=== PATIENT | female | born 1960 | race Caucasian/White ===

== ENCOUNTER → 2016-07-18 | Outpatient (CLI) | payer OTHER ==
--- NOTE | 2016-07-18 13:50 | MAM ---
History: Well woman exam. Date of exam: 07/18/2016 Services provided: Bilateral full field digital screening mammography. CAD, the images were reviewed with R2 computer aided detection. FINDINGS: Glandular tissue is scattered glandular contour. No prior study for comparison. No dominant mass, architectural distortion or clustered microcalcification. Suspected intramammary lymph node left breast 1:00. IMPRESSION: Benign exam Recommendation: Routine annual mammography BIRAD CATEGORY: 2 BENIGN Electronically signed by: Mary Delacruz MD 07/18/2016 1:49 PM CDT Workstation: [id number]
== END | disposition home or self-care (01) ==
LOC: MAMMO 08:29
PROVIDERS: ATTEND Family Medicine
DX: Z12.31 Encounter for screening mammogram for malignant neoplasm of breast (principal)

== ENCOUNTER → 2016-07-18 | Outpatient (CLI) | payer OTHER ==
--- NOTE | 2016-07-18 12:34 | US ---
EXAM DESCRIPTION: Renal CLINICAL HISTORY: 55 years, Female, MICROSCOPIC HEMATURIA COMPARISON: None. FINDINGS: Right kidney 10.3 cm left kidney 10.3 cm. No hydronephrosis. Lower pole left renal cyst medially 2.5 x 2.8 x 2.5 cm IMPRESSION: Incidental note of benign-appearing lower pole left renal cyst. Study otherwise unremarkable. Electronically signed by: Josue Ríos MD 07/18/2016 12:33 PM CDT
== END ==
LOC: US 08:30
PROVIDERS: ATTEND Family Medicine
DX: R31.21 Asymptomatic microscopic hematuria (principal); N28.1 Cyst of kidney, acquired

== ENCOUNTER → 2016-08-21 | Outpatient (CLI) | payer OTHER ==
--- NOTE | 2016-08-22 11:07 | CT ---
EXAM DESCRIPTION: Abdoment/Pelvis w/o Contrast CLINICAL HISTORY: HEMATURIA COMPARISON: None Available TECHNIQUE: CT of the abdomen and Pelvis was performed without IV contrast. This exam was performed according to our departmental dose-optimization program, which includes automated exposure control, adjustment of the mA and/or kV according to patient size and/or use of iterative reconstruction technique. FINDINGS: There is no left or right-sided urinary tract calculus, hydronephrosis or perinephric inflammation. There is a 3 cm cyst in the inferior pole of the left kidney. No suspicious renal mass. No bladder wall thickening. No adenopathy, ascites or pneumoperitoneum. The uterus and ovaries are not identified, please correlate with surgical history. No colonic wall thickening or pericolonic inflammation. Normal appendix. No dilated small bowel loops. The gallbladder is surgically absent. There is degenerative facet joint disease at several levels in the lumbar spine. The exam is otherwise unremarkable for noncontrast technique. IMPRESSION: 3 cm left renal cyst, but no urinary tract calculus, hydronephrosis, bladder wall thickening or additional abnormality to explain hematuria. Electronically signed by: Hero Vera MD 08/22/2016 11:06 AM CDT Workstation: [id number]
== END ==
LOC: CT 14:30
PROVIDERS: ATTEND Urology
DX: R31.9 Hematuria, unspecified (principal); N28.1 Cyst of kidney, acquired

== ENCOUNTER → 2017-01-25 | Outpatient (CLI) | payer OTHER | END | disposition home or self-care (01) | LOC: GMAM 16:41 | PROVIDERS: ATTEND Family Medicine | DX: E03.9 Hypothyroidism, unspecified (principal) ==

== ENCOUNTER → 2017-12-04 | Outpatient (CLI) | payer OTHER | LOC: GMAM 17:12 | PROVIDERS: ATTEND Family Medicine | DX: E03.9 Hypothyroidism, unspecified (principal) ==

== ENCOUNTER → 2017-12-18 | Outpatient (CLI) | payer OTHER ==
--- NOTE | 2017-12-18 11:42 | MRI ---
Study: MRI of the Left Shoulder. Indication: PAIN IN LEFT SHOULDER Technique: Multiplanar, multi sequence MRI of the left shoulder was obtained without intravenous contrast. Comparison: None. Findings: Moderate AC joint osteoarthritis. Type II acromion with mild lateral downsloping. Trace subacromial/subdeltoid bursal fluid. Irregular intermediate to high grade articular/interstitial tearing noted throughout the supraspinatus tendon insertion. The tear defect measures up to 22 mm AP by 10 mm transverse and involves up to 75% of expected tendon thickness. No tendon retraction. Subscapularis tendinosis. Teres minor tendon intact. Grade 1 fatty infiltration rotator cuff musculature. Intracapsular long head biceps tendinosis. Circumferential labral truncation/degeneration. Minimal glenohumeral joint osteoarthritis. Tiny joint effusion. No acute fracture. Thickening and edema inferior glenohumeral ligament which can be seen with adhesive capsulitis. Impression: Supraspinatus and infraspinatus tendinosis with irregular intermediate to high grade articular/interstitial tearing throughout the supraspinatus tendon insertion. Subscapularis tendinosis. Grade 1 fatty infiltration rotator cuff musculature. Intracapsular long head biceps tendinosis. Circumferential labral truncation and degeneration. Minimal glenohumeral joint osteoarthritis. Moderate AC joint osteoarthritis Adhesive capsulitis. Electronically signed by: Jake Burr MD 12/18/2017 11:41 AM CDT
== END ==
LOC: MRI 10:00
PROVIDERS: ATTEND Family Medicine
DX: M75.102 Unspecified rotator cuff tear or rupture of left shoulder, not specified as traumatic (principal); M75.82 Other shoulder lesions, left shoulder; M19.012 Primary osteoarthritis, left shoulder

== ENCOUNTER → 2018-04-09 | Outpatient (CLI) | payer OTHER ==
--- NOTE | 2018-04-10 17:12 | MAM ---
EXAM DESCRIPTION: 3D Screening BILATERAL : Digital Mammography. CLINICAL HISTORY: 57 years Female SCREEN . Small skin bump on the medial left breast. No other complaints. No personal or family history of breast cancer. Childbirth. Hysterectomy 17 years ago. HRT 5 or more years ago.. Lifetime risk of developing breast cancer (Tyrer-Cuzick model)(%): 6.5. COMPARISON: Bilateral screening digital 2-D mammography 07/18/2016. TECHNIQUE: Bilateral CC and MLO projection full-field images, digital tomosynthesis mammographic technique. Bilateral digital 2-D full-field MLO images. CAD not available for tomosynthesis or 2-D images. FINDINGS: The breast parenchymal density pattern is: Scattered areas of fibroglandular density. No skin thickening or nipple retraction. Small focal asymmetry in the anterior superior left breast is stable. Left axillary lymph node. Bilateral solitary microcalcifications. More nodular glandular tissues in the anterior half of the left breast are stable No new focal, stellate mass or density, focal asymmetry , and no suspicious microcalcifications bilaterally. Stable mammograms compared to prior study. Taking into account, differences in mammographic technique. IMPRESSION: Benign exam. BIRAD CATEGORY: 2 BENIGN FINDINGS. RECOMMENDATIONS: FOLLOW UP: Routine digital bilateral mammographic screening, one year interval from March 2018. Written communication explaining the IMPRESSION and follow-up, will be mailed to the patient and referring health care provider. According to the [employer], yearly mammograms are recommended starting at age 40 and continuing as long as a woman is in good health. Any breast change noted on a breast self-exam should be reported promptly to the patient's healthcare provider. Breast MRI is recommended for women with an approximately 20-25% or greater lifetime risk of breast cancer, including women with a strong family history of breast or ovarian cancer and women who have been treated for Hodgkin's disease. A negative mammographic report should not delay tissue diagnosis in patients with significant clinical history or physical findings. Extremely dense breast tissue limits the sensitivity of digital mammography. Electronically signed by: Marshall Varma MD 04/10/2018 5:10 PM ACCOUNTING MACHINE OPERATOR
== END ==
LOC: MAMMO 14:17
PROVIDERS: ATTEND Family Medicine
DX: Z12.31 Encounter for screening mammogram for malignant neoplasm of breast (principal)

== ENCOUNTER → 2018-04-18 | Outpatient (CLI) | payer OTHER | LOC: GMAM 14:23 | PROVIDERS: ATTEND Family Medicine | DX: R06.02 Shortness of breath (principal) ==

== ENCOUNTER → 2018-04-19 | Outpatient (CLI) | payer OTHER ==
--- NOTE | 2018-04-19 12:05 | CT ---
EXAM DESCRIPTION: Chest w/Contrast CLINICAL HISTORY: 57 years Female, SHORTNESS OF BREATH COMPARISON: Radiographs of the chest dated 04/18/2018. TECHNIQUE: Contiguous thin section axial images through the chest were obtained after the administration of intravenous contrast. Sagittal and coronal reconstructions were reviewed. FINDINGS: The visualized thyroid gland and supraclavicular region appear normal. No evidence of abnormally enlarged mediastinal, hilar or axillary lymphadenopathy. Trachea is midline and the central tracheobronchial tree is patent. The lungs are clear with no acute consolidation or hyperinflation. No nodules or masses are visualized. No evidence of pleural effusions. The heart is normal in size with no pericardial effusion. The visualized aorta is nonaneurysmal with no significant atherosclerosis. The superior vena cava is normal in size and caliber.No significant coronary artery atherosclerosis. The esophagus appears normal throughout its visualized length. The gallbladder is surgically absent. No other abnormality is noted in the imaged upper abdomen. Mild degenerative changes are identified throughout the visualized spine. IMPRESSION: 1. No acute cardiopulmonary process. 2. Mild degenerative disc disease is noted throughout the visualized spine. This exam was performed according to our departmental dose-optimization program, which includes automated exposure control, adjustment of the mA and/or kV according to patient size and/or use of iterative reconstruction technique. Electronically signed by: June Connolly MD 04/19/2018 12:02 PM PREFORM MACHINE OPERATOR
--- NOTE | 2018-04-19 12:51 | US ---
EXAM DESCRIPTION: Venous,Lower Extremity LT CLINICAL HISTORY: POSSIBLE DVT, short of breath COMPARISON: None Available. TECHNIQUE: Left lower extremity venous duplex FINDINGS: Doppler evaluation of the left lower extremity deep veins was performed. Normal color flow is seen in the common femoral, superficial femoral, profunda femoral and greater saphenous veins. Normal flow is seen in the popliteal vein and veins below the knee in the calf. Normal venous compressibility and flow augmentation. IMPRESSION: Negative for evidence of deep venous thrombosis on left lower extremity venous Doppler sonogram. Electronically signed by: Carlos Felipe MD 04/19/2018 12:48 PM DESIGN TECH
--- NOTE | 2018-04-19 12:51 | US ---
EXAM DESCRIPTION: Venous,Lower Extremity RT CLINICAL HISTORY: POSSIBLE DVT, short of breath COMPARISON: None Available. TECHNIQUE: Right lower extremity venous duplex FINDINGS: Doppler evaluation of the right lower extremity deep veins was performed. Normal color flow is seen in the common femoral, superficial femoral, profunda femoral and greater saphenous veins. Normal flow is seen in the popliteal vein and veins below the knee in the calf. Normal venous compressibility and flow augmentation. IMPRESSION: Negative for evidence of deep venous thrombosis on right lower extremity venous Doppler sonogram. Electronically signed by: Carlos Felipe MD 04/19/2018 12:48 PM PREMIUM NOTE INTEREST CALCULATOR CLERK
== END ==
LOC: US 11:00
PROVIDERS: ATTEND Family Medicine
DX: R06.02 Shortness of breath (principal)

== ENCOUNTER → 2019-03-25 | Outpatient (CLI) | payer OTHER | LOC: GMAM 14:52 | PROVIDERS: ATTEND Family Medicine | DX: E03.9 Hypothyroidism, unspecified (principal); E78.00 Pure hypercholesterolemia, unspecified ==

== ENCOUNTER → 2019-12-16 | Outpatient (CLI) | payer OTHER | LOC: GMAM 14:51 | PROVIDERS: ATTEND Family Medicine | DX: E03.9 Hypothyroidism, unspecified (principal); I10 Essential (primary) hypertension ==

== ENCOUNTER → 2020-01-28 | Outpatient (CLI) | payer OTHER | LOC: GMAM 14:42 | PROVIDERS: ATTEND Family Medicine | DX: E03.9 Hypothyroidism, unspecified (principal) ==